=== PATIENT | female | born 2000 | race Caucasian/White ===

== ENCOUNTER 2023-04-25 05:55 | Inpatient (IN) | payer OTHER | END 2023-04-27 11:43 | disposition home or self-care (01) | DRG 788 | LOC: FBC 05:55 | PROVIDERS: ADMIT Obstetrics & Gynecology | PROC: 10D00Z1 Extraction of Products of Conception, Low, Open Approach (ICD-10-PCS; principal; 2023-04-25) | DX: O34.211 Maternal care for low transverse scar from previous cesarean delivery (principal); Z3A.39 39 weeks gestation of pregnancy; Z37.0 Single live birth ==